=== PATIENT | female | born 1965 | race African-American/Black ===

== ENCOUNTER 2020-08-12 08:31 | Emergency (ER) | payer OTHER ==
[2020-08-12 10:26] LABS: HEMOGLOBIN 14.4 gm/dl (12.3-15.3); RED BLOOD COUNT 4.67 M/UL (4.00-5.10); WHITE BLOOD COUNT 3.9 K/UL (4.5-11.0)
[2020-08-12 10:44] LABS: BUN/CREATININE RATIO 36 (0-10)
[2020-08-12] MEDS ORDERED: PREDNISONE20 MG PO (16:05)
== END 2020-08-12 16:00 | disposition home or self-care (01) ==
LOC: ER1 08:31
PROVIDERS: Family Medicine
DX: S13.4XXA Sprain of ligaments of cervical spine, initial encounter (principal); M79.602 Pain in left arm; R93.89 Abnormal findings on diagnostic imaging of other specified body structures; Z90.711 Acquired absence of uterus with remaining cervical stump; Z88.1 Allergy status to other antibiotic agents; V49.40XA Driver injured in collision with unspecified motor vehicles in traffic accident, initial encounter
CPT/HCPCS: 72125; 80053; 83690; 83880; 85025; 96374; 99284; J2930; Q9967